=== PATIENT | female | born 1990 | race Caucasian/White ===

== ENCOUNTER 2016-06-29 22:13 | Inpatient (IN) | payer OTHER ==
--- NOTE | ~2016-06-29 | PN ---
Unit #: [id number] #: [id number] Patient: TYLER LING [id number] [facility] [address] [place] [address] [id number] I MR#: [id number] NAME: TYLER LING ROOM: P209 Age: 26 Sex: F Admission Date: 06/29/2016 : 1990 Attending Physician: Alicia Arriaza M.D. Admitting Physician: Alicia Arriaza M.D. Primary Care Physician: Generic Doctor Not In System [facility] PROGRESS NOTES DATE OF SERVICE: 07/06/2016 SUBJECTIVE Ms. Ling is a 26-year-old white female, who was seen today and chart was reviewed, and case was discussed with the staff. She has been anxious, withdrawn, seclusive to herself, blunted affect, minimal interaction carry on any conversation. Meanwhile, she has been taking the medications, but does not appear to be showing a therapeutic response. MENTAL STATUS EXAMINATION Young white female, who was casually dressed with fair personal hygiene, appears to be in no acute distress or discomfort. She was awake with impaired alertness and was unable to carry on any meaningful conversation . TREATMENT PLAN We will continue her on her current treatment protocol. We will monitor her response to the medications and make further adjustments as needed. Dictated by... Kiersten Avalos/pati TD: 07/07/2016 01:43 JOB #: [id number] [facility] PROGRESS NOTES X Alicia Arriaza MD PROGRESS NOTE
--- NOTE | ~2016-06-29 | PN ---
Unit #: [id number] #: [id number] Patient: TYLER LING [id number] [facility] [address] [place] [address] [id number] MR#: [id number] NAME: TYLER LING ROOM: P209 Age: 26 Sex: F Admission Date: 06/29/2016 : 1990 Attending Physician: Alicia Arriaza M.D. Admitting Physician: Alicia Arriaza M.D. Primary Care Physician: Generic Doctor Not In System [facility] PROGRESS NOTES DATE OF SERVICE: 07/05/2016 SUBJECTIVE Ms. Ling is a 26-year-old white female with substance abuse and mood disorder, who was seen today and chart was reviewed, and case was discussed with the staff. She has been anxious, withdrawn, though has not shown any agitation or irritability, and has been cooperative with treatment recommendations and has been taking the medications and tolerating them fairly well with no reported side effects. MENTAL STATUS EXAMINATION Young white female who was casually dressed with fair personal hygiene and appears to be in no acute distress or discomfort. She was awake and alert with impaired attention and concentration. Her mood was anxious with a congruent affect. Her speech was slow and restricted. Her thought processes were disorganized with some looseness of associations, paranoid ideation, and thought blocking. Her insight and judgment remain significantly impaired. TREATMENT PLAN We will continue on her current medications and the patient remains mute and very seclusive to herself. We will monitor her response and make further adjustments as needed. Dictated by... Kiersten Avalos/tobinl TD: 07/06/2016 03:48 JOB #: [id number] [facility] PROGRESS NOTES X Alicia Arriaza MD PROGRESS NOTE
--- NOTE | ~2016-06-29 | PN ---
Unit #: [id number] #: [id number] Patient: TYLER LING [id number] [facility] [address] [place] [address] [id number] MR#: [id number] NAME: TYLER LING ROOM: P209 Age: 26 Sex: F Admission Date: 06/29/2016 : 1990 Attending Physician: Alicia Arriaza M.D. Admitting Physician: Alicia Arriaza M.D. Primary Care Physician: Generic Doctor Not In System [facility] PROGRESS NOTES DATE OF SERVICE: 07/08/2016 SUBJECTIVE Ms. Ling is a 26-year-old white female with substance abuse and mood disorder, who was seen today and chart was reviewed and case was discussed with the staff. She appears to be doing better everyday and has been interacting and socializing better and has been showing improvement in her confusion . She has not shown any agitation or aggression. MENTAL STATUS EXAMINATION Young white female who was casually dressed with fair personal hygiene and appears to be in no acute distress or discomfort. She was awake and alert on interaction with intact orientation. Her mood was anxious with a congruent affect. She denies any suicidal or homicidal ideations. Her insight and judgment remain slightly impaired. TREATMENT PLAN 1. We will continue her on her current medications and treatment protocol. We will monitor her response to the medications and make further adjustments as needed. 2. We will continue to follow up. Dictated by... Kiersten Avalos/pati TD: 07/08/2016 12:31 JOB #: [id number] [facility] PROGRESS NOTES X Alicia Arriaza MD PROGRESS NOTE
--- NOTE | ~2016-06-29 | PN ---
Unit #: [id number] #: [id number] Patient: TYLER LING [id number] [facility] [address] [place] [address] [id number] I MR#: [id number] NAME: TYLER LING ROOM: P209 Age: 26 Sex: F Admission Date: 06/29/2016 : 1990 Attending Physician: Alicia Arriaza M.D. Admitting Physician: Alicia Arriaza M.D. Primary Care Physician: Generic Doctor Not In System [facility] PROGRESS NOTES DATE OF SERVICE: 07/02/2016 SUBJECTIVE Ms. Ling is a 26-year-old white female, who was seen today and chart was reviewed and the case was discussed with the staff. She has been anxious, withdrawn, and seclusive to herself. Once again, has been showing some increasing psychosis, confusion and inability to carry on any conversation, previously used to be essentially mute, just stares, and does not respond to any of the questions, appears to be out of touch with reality. MENTAL STATUS EXAMINATION Young white female, who was casually dressed with fair personal hygiene, appears to be in no acute distress or discomfort. She was awake and alert with impaired attention and concentration and unable to carry on any meaningful conversation and as such, mental status examination could not be completed. TREATMENT PLAN 1. We will continue her on her current medications and treatment protocol. We will monitor her response to medications and make further adjustments as needed. 2. We will continue to follow up. Dictated by... Kiersten Avalos/pati TD: 07/03/2016 06:42 JOB #: [id number] [facility] PROGRESS NOTES X Alicia Arriaza MD PROGRESS NOTE
--- NOTE | ~2016-06-29 | PN ---
Unit #: [id number] #: [id number] Patient: TYLER LING [id number] [facility] [address] [place] [address] [id number] I MR#: [id number] NAME: TYLER LING ROOM: P209 Age: 26 Sex: F Admission Date: 06/29/2016 : 1990 Attending Physician: Alicia Arriaza M.D. Admitting Physician: Alicia Arriaza M.D. Primary Care Physician: Generic Doctor Not In System [facility] PROGRESS NOTES DATE OF SERVICE: 07/07/2016 SUBJECTIVE Ms. Ling is a 26-year-old white female, who was seen today and chart was reviewed and the case was discussed with the staff. She has been anxious, withdrawn, and rather seclusive to herself. Meanwhile, she has been cooperative with the treatment recommendations and has been taking the medications and tolerating them fairly well. MENTAL STATUS EXAMINATION Young white female, who was casually dressed with a fair personal hygiene and appears to be in no acute distress or discomfort. She was awake and alert on interaction with intact orientation. Her mood was anxious with a congruent affect. She denies any suicidal or homicidal ideations. Her insight and judgment remain significantly impaired. TREATMENT PLAN We will continue her on her current treatment protocol. We will monitor her response and make further adjustments as needed. Dictated by... Kiersten Avalos/pati TD: 07/07/2016 17:16 JOB #: [id number] [facility] PROGRESS NOTES X Alicia Arriaza MD PROGRESS NOTE
--- NOTE | ~2016-06-29 | PA ---
Unit #: [id number] #: [id number] Patient: TYLER LING [id number] [facility] [address] [place] [address] [id number] I MR#: [id number] NAME: TYLER LING ROOM: P209 Age: 26 Sex: F Admission Date: 06/29/2016 : 1990 Date of Assessment: Attending Physician: Alicia Arriaza M.D. Admitting Physician: Alicia Arriaza M.D. Primary Care Physician: Generic Doctor Not In System PSYCHIATRIC ASSESSMENT DATE OF SERVICE 06/30/2016. IDENTIFYING DATA Ms. Ling is a 26-year-old single white female, who is a resident of [place], [place], and [place] [facility] was accompanied by her mother. CHIEF COMPLAINT "She was discovered unresponsive in her car." HISTORY OF PRESENT ILLNESS Ms. Ling is a 26-year-old white female, who was taken [place] [facility] after the patient was discovered unresponsive in her car with an infant child in the backseat and the patient was provided with a respiratory bag due to depressed breathing and also given Narcan, and her drug screen was positive for opioids and the patient apparently used heroin today and it was suspected to be an overdose. She was disoriented to time, place, and person and had significant difficulty answering assessment question. During initial evaluation, the patient could not identify whether heroin overdose was intentional or this was just a recreational use or accidental overdose. She was seen to have increasing confusion and was medically cleared and then transferred to us. However, on evaluation by me, the patient was seen to be slowing pacing in the hallways and had a blunted flat affect and would not acknowledge me and then stopped and stared at me, but would not answer any questions and would not even elaborate her name and remained a poor historian and was seen to be completely out of touch with reality and remained confused and disoriented and it is not clear if she has had any brain damage because of her respiratory failure due to opioid overdose. SUBSTANCE ABUSE HISTORY Review of the medical records indicate that the patient has a history of heroin dependence and it is not clear if she has been mixing it with any other drugs and the patient remains a poor historian. PAST PSYCHIATRIC HISTORY The patient has not had any prior inpatient or outpatient psychiatric treatment. Review of the medical records indicate that currently she is not active in any treatment program and is not seeing a psychiatrist. PAST MEDICAL HISTORY No acute or chronic medical illnesses. Unit #: [id number] #: [id number] Patient: TYLER LING ALLERGIES No known medication allergies. PERSONAL AND SOCIAL HISTORY A 26-year-old white female, who reports that she lives at home with her boyfriend, child, her mother, and mother's boyfriend. MENTAL STATUS EXAMINATION Young white female, who was casually dressed with fair personal hygiene, appears to be in no acute distress or discomfort. She was awake and alert on interaction with intact orientation to time, place, and person. Her mood was anxious and depressed with a congruent affect. Her speech was slow and restricted in content. Her thought processes were disorganized with some looseness of associations and suicidal ideations. Her insight and judgment remain significantly impaired. DIAGNOSTIC IMPRESSION Psychiatric: Major depressive disorder, recurrent, moderate, without psychotic features and opioid dependence, moderate, in acute withdrawals. Medical: None. Stressors: Moderate psychosocial stressors. TREATMENT PLAN 1. The patient has presented with a history of substance abuse and mood disorder and has been decompensating and will need inpatient hospitalization for safety and stabilization. We will start her back on her home medications and we will adjust the medications and monitor response. 2. Supportive therapy was provided to the patient. 3. Safe, structured, and nourishing environment will be provided. ESTIMATED LENGTH OF STAY 4 to 5 days. ABILITY TO HELP SELF Limited. WILLINGNESS TO HELP SELF The patient appears to be willing to help self. STRENGTHS 1. Communicative. 2. Cooperative. PROBLEMS 1. Chronic dysphoric symptoms. 2. Chronic chemical dependency. 3. Poor social support system. DISCHARGE CRITERIA This will be contingent upon the patient's ability to show resolution of her depression, psychosis, and confusion and her ability to stay safe to herself, particularly after discharge from the hospital. Dictated by... Alicia Arriaza M.D. Unit #: [id number] #: [id number] Patient: TYLER LING IAA/modl TD: 06/30/2016 12:01 JOB #: [id number] PSYCHIATRIC ASSESSMENT X Alicia Arriaza MD PSYCHIATRIC ASSESSMENT
--- NOTE | ~2016-06-29 | HP ---
Unit #: [id number] #: [id number] Patient: TYLER RODGERS [id number] [place] [address] [id number] I MR#: [id number] NAME: TYLER RODGERS ROOM: P209 Age: 26 Sex: F Admission Date: 06/29/2016 : 1990 Attending Physician: Alicia Arriaza M.D. Admitting Physician: Alicia Arriaza M.D. Primary Care Physician: Generic Doctor Not In System HISTORY AND PHYSICAL HISTORY OF PRESENT ILLNESS Tyler is a 26-year-old female admitted on 06/29/2016 after an overdose on suspected heroin. She was found unresponsive in her car and receive Narcan and respiratory assessments. When she awoke she could not answer questions and was disoriented. During the evaluation she was unable to answer any questions appropriately and did not appear to be oriented. Therefore, all information is taken from records. PAST MEDICAL HISTORY Psoriasis. PAST SURGICAL HISTORY None documented. ALLERGIES None. SOCIAL HISTORY Denies tobacco or alcohol use. Urine was positive for opiates. She is currently single and living with her mother. FAMILY HISTORY Noncontributory. REVIEW OF SYSTEMS CONSTITUTIONAL: No fever or chills. HEENT: Denies any sore throat, ear pain or runny nose. CARDIOVASCULAR: Denies chest pain, irregular heart rhythm or palpitations. CHEST: Denies shortness of breath or cough. No hemoptysis. GASTROINTESTINAL: Denies nausea, vomiting, diarrhea or chronic constipation. ENDOCRINE: Denies history of increased thirst or urination. No recent significant weight loss or gain. GENITOURINARY: Denies dysuria, frequency, or hematuria. SKIN: Denies any rashes. HEMATOLOGIC: Denies history of increased bleeding or bruising. MUSCULOSKELETAL: Denies any hot, swollen joints. No generalized muscle pain. NEUROLOGIC: Denies problems with vision or speech. No frequent, severe headaches. No numbness, tingling or weakness in any extremities. Denies loss of bladder or bowel control. CURRENT MEDICATIONS Unit #: [id number] #: [id number] Patient: TYLER RODGERS None. PHYSICAL EXAMINATION GENERAL: Alert, disoriented, in no acute distress. VITAL SIGNS: Blood pressure 130/92, heart rate 105, respirations 18, temperature 98.4. HEIGHT: 5 feet 7. WEIGHT: 143 pounds. SKIN: Warm and dry without rash or lesion. HEENT: Normocephalic. TMs not viewed. Oral and nasal passages clear. Conjunctivae clear. PERRLA. EOMs intact. NECK: Supple without lymphadenopathy or thyromegaly. HEART: Regular rate and rhythm without murmur. LUNGS: Clear. ABDOMEN: Soft, nontender, without masses or hepatosplenomegaly. : Not done. EXTREMITIES: No evidence of cyanosis, clubbing or edema. Moves all without focal deficit. NEUROLOGICAL: Grossly within normal limits. Cranial Nerves: II: Visual cotto are intact. III, IV AND : Extraocular movements are intact. Pupils are equal, round and reactive to light. V: Facial sensation is grossly normal. VII: Facial movements and expression are normal. VIII: Auditory acuity grossly intact. IX, X: Uvula is midline. Phonation is normal. XI: Patient shrugs shoulders and turns head normally. XII: Tongue protrudes in the midline. Sensory and Motor Function: Sensory and motor sensation is grossly normal. Motor: moves all extremities well. Coordination: Gait is normal. Deep Tendon Reflexes: Intact. IMPRESSION 1. Psychiatric admission. 2. Psoriasis. RECOMMENDATIONS PSYCHIATRIC: Per psychiatrist. MEDICAL: No contraindications to participate in facility's activities. MEDICAL PROGNOSIS Good. MEDICAL CONDITION Stable. Dictated by..Em Leavitt/kendrick TD: 06/30/2016 19:01 JOB #: [id number] Unit #: [id number] #: [id number] Patient: TYLER RODGERS HISTORY AND PHYSICAL X MARCEL EDWARDS APRN X HISTORY AND PHYSICAL
--- NOTE | ~2016-06-29 | PN ---
Unit #: [id number] #: [id number] Patient: TYLER LING [id number] [facility] [address] [place] [address] [id number] MR#: [id number] NAME: TYLER LING ROOM: P209 Age: 26 Sex: F Admission Date: 06/29/2016 : 1990 Attending Physician: Alicia Arriaza M.D. Admitting Physician: Alicia Arriaza M.D. Primary Care Physician: Generic Doctor Not In System [facility] PROGRESS NOTES DATE July 09, 2016 DISCUSSION Ms. Ling is a 26-year-old white female, who was seen today and chart was reviewed and the case was discussed with the staff. She has been anxious, withdrawn, but has not shown any agitation, irritability, or behavioral problems, and has been cooperative with the treatment recommendations. She has been taking the medications and tolerating them fairly well with no reported side effects. MENTAL STATUS EXAMINATION Young white female, who was casually dressed with fair personal hygiene and appears to be in no acute distress or discomfort. She was awake and alert on interaction with intact orientation. Her mood was anxious with a congruent affect. She denies any suicidal or homicidal ideations, and also denies any auditory or visual hallucinations. Her insight and judgment remain slightly impaired. TREATMENT PLAN 1. We will continue her on her current medications and treatment protocol, and will monitor her response to the medications, and make further adjustments as needed. 2. We will continue to followup. Dictated by... Kiersten Avalos/laura TD: 07/10/2016 13:09 JOB #: [id number] Unit #: [id number] #: [id number] Patient: TYLER LING [facility] PROGRESS NOTES Page 1 of 1 X Alicia Arriaza MD PROGRESS NOTE
--- NOTE | ~2016-06-29 | DS ---
Unit #: [id number] #: [id number] Patient: TYLER LING [id number] [facility] [address] [place] [address] [id number] MR#: [id number] NAME: TYLER LING ROOM: P209 Age: 26 Sex: F Admission Date: 06/29/2016 : 1990 Discharge Date: 07/10/2016 Attending Physician: Alicia Arriaza M.D. Primary Care Physician: Generic Doctor Not In System DISCHARGE SUMMARY IDENTIFYING DATA Ms. Ling is a 26-year-old single white female, who is a resident of [place], [place], and [place] [facility] DISCHARGE DIAGNOSES Psychiatric: Major depressive disorder, recurrent, moderate, without psychotic features; opioid dependence, moderate and acute withdrawals. Medical: None. Stressors: Moderate psychosocial stressors. HISTORY OF PRESENT ILLNESS Please see initial psychiatric evaluation for details. PAST PSYCHIATRIC HISTORY Please see initial psychiatric evaluation for details. PAST MEDICAL HISTORY Please see initial psychiatric evaluation for details. HOSPITAL COURSE The patient [facility] and was oriented to the hospital environment. Routine p.r.n. medications were initiated, and she was started back on her home medications and opioid detox protocol was initiated. 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 However, she was slowly starting to make some progress and was able to show complete resolution of her thought blocking and cognitive impairment and was awake, alert, oriented, and able to give a meaningful conversation, was cooperative with treatment recommendation and was wanting to go home and was willing to continue treatment on an outpatient basis and as such, it was decided that she will be discharged home and will continue treatment on an outpatient basis. DISCHARGE MEDICATIONS None. DISCHARGE CONDITION Stable. Unit #: [id number] #: [id number] Patient: TYLER LING PROGNOSIS Fair. Dictated by... Alicia Arriaza M.D. IAA/modl TD: 07/11/2016 00:10 JOB #: [id number] DISCHARGE SUMMARY Page 1 of 1 X Alicia Arriaza MD DISCHARGE SUMMARY
--- NOTE | ~2016-06-29 | PN ---
Unit #: [id number] #: [id number] Patient: TYLER LING [id number] [facility] [address] [place] [address] [id number] I MR#: [id number] NAME: TYLER LING ROOM: P209 Age: 26 Sex: F Admission Date: 06/29/2016 : 1990 Attending Physician: Alicia Arriaza M.D. Admitting Physician: Alicia Arriaza M.D. Primary Care Physician: Generic Doctor Not In System [facility] PROGRESS NOTES DATE OF SERVICE: 07/01/2016 SUBJECTIVE Ms. Ling is a 26-year-old white female, who was seen today and chart was reviewed and the case was discussed with the staff. She has been complaining of persistent anxiety and depression and has lack of sleep and does not feel that her current medications are helping her and definitely medication to be changed. MENTAL STATUS EXAMINATION Young white female, who was casually dressed with fair personal hygiene, appears to be in no acute distress or discomfort. She was awake and alert on interaction with intact orientation. Her mood was anxious with a congruent affect. She denies any suicidal or homicidal ideations. Her insight and judgment remain slightly impaired. TREATMENT PLAN 1. We will continue her on her current medications and treatment protocol. We will monitor her response and make further adjustments as needed. 2. We will continue to follow up. Dictated by... Kiersten Aavlos/tobinl TD: 07/01/2016 14:49 JOB #: [id number] [facility] PROGRESS NOTES X Alicia Arriaza MD PROGRESS NOTE
--- NOTE | ~2016-06-29 | PN ---
Unit #: [id number] #: [id number] Patient: TYLER LING [id number] [facility] [address] [place] [address] [id number] MR#: [id number] NAME: TYLER LING ROOM: P209 Age: 26 Sex: F Admission Date: 06/29/2016 : 1990 Attending Physician: Alicia Arriaza M.D. Admitting Physician: Alicia Arriaza M.D. Primary Care Physician: Generic Doctor Not In System [facility] PROGRESS NOTES DATE OF SERVICE: 07/04/2016 SUBJECTIVE Ms. Ling is a 26-year-old white female who was seen today and chart was reviewed and case was discussed with the staff. She has been anxious, withdrawn, and seclusive to herself. Meanwhile, she has been cooperative with treatment recommendations and has been taking the medications and tolerating them fairly well with no reported side effects. MENTAL STATUS EXAMINATION Young white female who was casually dressed with fair personal hygiene and appears to be in no acute distress or discomfort. She was awake and alert with impaired attention and concentration. Her mood was anxious with blunted affect. Her speech is slow and restricted. Her thought processes were disorganized with some looseness of associations, thought blocking, paranoid ideation. Her insight and judgment remain significantly impaired. TREATMENT PLAN The patient remains mute and unable to get any meaningful conversation or could respond to anything at all and appears to be exhibiting significant confusion and as such, we will maintain on her current level of precautions and treatment protocol. We will monitor her response and make further adjustments as needed. Dictated by... Kiersten Avalos/pati TD: 07/05/2016 05:35 JOB #: [id number] [facility] PROGRESS NOTES X Alicia Arriaza MD PROGRESS NOTE
--- NOTE | ~2016-06-29 | PN ---
Unit #: [id number] #: [id number] Patient: TYLER LING [id number] [facility] [address] [place] [address] [id number] MR#: [id number] NAME: TYLER LING ROOM: P209 Age: 26 Sex: F Admission Date: 06/29/2016 : 1990 Attending Physician: Alicia Arriaza M.D. Admitting Physician: Alicia Arriaza M.D. Primary Care Physician: Generic Doctor Not In System [facility] PROGRESS NOTES DATE OF SERVICE: 07/03/2016 SUBJECTIVE Ms. Ling is a 26-year-old white female, who was seen today and chart was reviewed and case was discussed with the staff. She has been anxious, withdrawn, and seclusive to herself with blunted affect and minimal interaction. Once again was unable to carry on much conversation at all. Meanwhile, she has been taking medications and tolerating them fairly well. MENTAL STATUS EXAMINATION Young white female who was casually dressed with fair personal hygiene, appears to be in no acute distress or discomfort. She was awake and alert with impaired attention and concentration. Her mood was anxious with a congruent affect. Speech was slow and restricted in content. Thought process were disorganized with some looseness of associations. Her insight and judgement remain significantly impaired. TREATMENT PLAN 1. We will continue her on her current medications and treatment protocol. We will monitor her response to medications and make further adjustments as needed. 2. We will continue to follow up. Dictated by... Kiersten Avalos/pati TD: 07/04/2016 08:09 JOB #: [id number] [facility] PROGRESS NOTES X Alicia Arriaza MD PROGRESS NOTE
[2016-07-01 11:13] LABS: BASOPHIL% 0.5 % (0-2.5); EOSINOPHIL# 0.2 X10e3 (0-0.7); HEMATOCRIT 37.5 % (35.0-45.0); HEMOGLOBIN 12.3 gm/dL (12.0-16.0); LYMPHOCYTE# 1.6 X10e3 (1.0-3.5); LYMPHOCYTE% 28.8 % (17.0-45.0); MEAN CELL VOLUME 87.3 FL (83-96); MEAN CORPUSCULAR HEMOGLOBIN 28.6 PG (28-34); MEAN CORPUSCULAR HGB CONC 32.7 g/dL (30-36); MEAN PLATELET VOLUME 9.6 FL (6.5-11.5); MONOCYTE# 0.5 X10e3 (0-1.0); MONOCYTE% 8.9 % (3.0-12.0); NEUTROPHIL# 3.2 X10e3 (1.5-7.1); NEUTROPHIL% 58.8 % (40-75); PLATELET COUNT 215 X10e3 (140-420); RED CELL DISTRIBUTION WIDTH 13.9 % (11.0-15.5); WHITE BLOOD COUNT 5.4 X10e3 (4.0-10.5)
[2016-07-01 11:16] LABS: DIFF IND NO
[2016-07-01 11:55] LABS: THYROID STIMULATING HORMONE 0.46 uIU/ml (0.34-5.60)
[2016-07-01 12:02] LABS: FREE THYROXIN (T4) 1.06 ng/dL (0.58-1.64)
[2016-07-01 12:05] LABS: ALBUMIN SERUM 3.9 g/dL (3.5-5.0); ALKALINE PHOSPHATASE 67 U/L (32-92); ALT (SGPT) 15 U/L (10-40); AST (SGOT) 17 U/L (10-42); BILIRUBIN,TOTAL 0.4 mg/dL (0.2-2.0); BLOOD UREA NITROGEN 14 mg/dL (9-23); CALCIUM SERUM 8.9 mg/dL (8.4-10.2); CARBON DIOXIDE 27 mmol/L (22-31); CHLORIDE 105 mmol/L (100-111); CREATININE SERUM 0.8 mg/dL (0.6-1.4); GLOM FILT RATE Estimated ABOVE60 mL/min (>60); GLUCOSE FASTING 87 mg/dL (70-110); POTASSIUM 4.5 mmol/L (3.5-5.1); PROTEIN TOTAL SERUM 6.3 g/dL (6.0-8.3); SODIUM 139 mmol/L (135-145)
[2016-07-04 12:43] LABS: URINE APPEARANCE CLOUDY; URINE BILIRUBIN NEG (NEG); URINE BLOOD NEG (NEG); URINE COLOR DK YELLOW; URINE GLUCOSE NEG (NEG); URINE KETONE NEG (NEG); URINE LEUKOCYTE ESTERASE NEG (NEG); URINE NITRATE NEG (NEG); URINE PH 6.5 (5-8); URINE PROTEIN NEG (NEG); URINE SPECIFIC GRAVITY 1.026 (1.003-1.035); URINE UROBILINOGEN 0.2 MG/DL (NEG)
[2016-07-04 13:15] LABS: AMPHETAMINE NEG (NEG); BARBITURATES NEG (NEG); BENZODIAZEPINES NEG (NEG); COCAINE NEG (NEG); MARIJUANA NEG (NEG); OPIATES NEG (NEG); TRICYCLIC ANTIDEPRESSANTS NEG (NEG); U METHADONE NEG (NEG)
== END 2016-07-10 14:00 | DRG 885 ==
LOC: P2S 22:13 → POF 07-02 14:01 → P2S 07-02 14:07
PROVIDERS: Psychiatry & Neurology Psychiatry
PROC: HZ2ZZZZ Detoxification Services for Substance Abuse Treatment (ICD-10-PCS; principal; 2016-06-29)
DX: F33.1 Major depressive disorder, recurrent, moderate (principal); F11.23 Opioid dependence with withdrawal; T40.1X1A Poisoning by heroin, accidental (unintentional), initial encounter
CPT/HCPCS: 80053; 80307; 81003; 84439; 84443; 84703; 85025; 86592

== ENCOUNTER 2016-08-21 11:36 | Emergency (ER) | payer OTHER | END 2016-08-21 12:35 | disposition home or self-care (01) | LOC: CED 11:36 | DX: J06.9 Acute upper respiratory infection, unspecified (principal); Z20.818 Contact with and (suspected) exposure to other bacterial communicable diseases | CPT/HCPCS: 99282 ==